=== PATIENT | male | born 1990 | race Caucasian/White ===

== ENCOUNTER 2017-06-22 09:41 | Emergency (ER) | payer OTHER ==
--- NOTE | 2017-06-22 10:07 | ERNOTE ---
Upper Extremity HPI - Narrative Date of Service: 06/22/17 - General Extremities Pain Location: forearm: right Time Seen by Provider: 06/22/17 09:50 Source: patient Exam Limitations: no limitations - Immun/Allergies/Home Medications Immunizations: IMMUNIZATION HX Immunizations Up to Date No History of Influenza Vaccine No Hx Pneumococcal Vaccination No Allergies/Adverse Reactions: Allergies Allergy/AdvReac Type Severity Reaction Status Date / Time No Known Allergies Allergy Unverified 06/22/17 09:51 Home Medications: HOME MEDICATIONS Cephalexin Monohydrate [Keflex] 500 mg PO QID #40 cap 06/22/17 [Last Taken Unknown] Ibuprofen 800 mg PO TID PRN #30 tablet 06/22/17 [Last Taken Unknown] - History of Present Illness Narrative: Pt. comes in with c/o R fore arm injury where he was swinging a hammer and his R forearm suddenly developed severe pain and spontaneous bleeding through what appears to be a puncture through the skin but pt. denies hitting his forearm on anything. Pt. denies any numbness or tingling but does state that he has no strength in his arm or hand. Pt. denies any SOB, CP, NVD, fever, recent illness , prehospital treatment, or alleviating factors. Review of Systems - Review of Systems Constitutional: Present: no symptoms reported. Absent: recent illness, fever, chills, weakness, fatigue EYE: Present: no symptoms reported ENT: Present: no symptoms reported Respiratory: Present: no symptoms reported. Absent: shortness of breath, cough , wheezing Cardiology: Present: no symptoms reported. Absent: chest pain, palpitations, edema Gastrointestinal/Abdominal: Present: no symptoms reported. Absent: nausea, vomiting, diarrhea Genitourinary: Present: no symptoms reported Musculoskeletal: Present: muscle pain - R forearm Skin: Present: no symptoms reported Neurological: Present: no symptoms reported. Absent: headache, dizziness/light- headedness, numbness, tingling All Other Systems: All systems neg except as marked - Patient's Past Medical History Patient History - Medical: No pertinent hx Patient History - Cardiac/Respiratory: No pertinent hx Patient History - Cancer: No Hx of Cancer Patient History - Surgical Procedures: No surgical history Patient History - Other: None - Family History Father Family History - Cardiac/Respiratory: Atrial Fibrillation - Social History Living Situations: home Psych History: No pertinent hx Smoking Status: Never smoker Have you smoked in the past 12 months: No Alcohol Use: rarely Drug Use: none - Immunizations Immunizations Up to Date: No Hx Pneumococcal Vaccination: No History of Influenza Vaccine: No Physical Exam - Physical Exam General Appearance: Present: wd/wn, alert, no apparent distress Head Exam: Present: normal inspection, no evidence of injury Neck: Present: normal inspection Respiratory: Present: no respiratory distress, normal breath sounds, no accessory muscle use, chest nontender, lungs clear Cardiovascular/Chest: Present: regular rate, rhythm, no murmur, normal peripheral pulses Gastrointestinal/Abdominal: Present: normal bowel sounds, nontender, nondistended, soft, no organomegaly Back Exam: Present: normal inspection Extremity Exam: Present: no edema, decreased range of motion - 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 Absent: pallor, skin rash ED Progress - Date and Time Seen: Date and Time: 06/22/17 10:[address] Ritchie and left message for him to call back for consult. 06/22/17 11:[address] Ritchie and he recommends one dose of ancef here, home with ice and elevation and follow up with him in clinic on thursday for further evaluation - Vital Signs Patient's Vital Signs:: I have reviewed the patient's vital signs. Vital Signs: Vital Signs 06/22/17 09:46 Temperature 37.3 C Pulse Rate 80 Respiratory 16 Rate Blood Pressure 140/88 O2 Sat by Pulse 100 Oximetry - X-Ray X-Ray #1 X-Ray: forearm Interpretation: Reviewed by me X-ray Comments: 0.4 x 0.2 cm foreign body along medial radius and soft tissue swelling. - Progress/Reassessment Chief Complaint: Upper Extremity Injury/Problem Departure Clinical Impression: Brachioradialis muscle tenderness Foreign body forearm Qualifiers: Encounter type: initial encounter Laterality: right Qualified Code(s): S50.851A - Superficial foreign body of right forearm, initial encounter - Departure Disposition: Home self-care Condition: Good Additional Instructions: Please rest R arm and keep elevated above heart and apply ice 20 minutes every hour until seen by Dr Ritchie on Thursday. Prescriptions: Cephalexin Monohydrate [Keflex] 500 mg PO QID #40 cap Ibuprofen 800 mg PO TID PRN #30 tablet PRN Reason: Pain
[2017-06-22] MEDS ORDERED: DIPHTH,PERTUSS(ACELL),TET VAC 0.5 ML VIAL IM ONE ×2 (10:31→10:32)
[2017-06-22] MEDS ORDERED: ceFAZolin SODIUM/DEXTROSE,ISO 2 GM/50 ML BAG IV ONE (11:20)
[2017-06-22 11:53] VITALS: BP 131/79
== END 2017-06-22 12:00 | disposition home or self-care (01) ==
LOC: ER 09:41
DX: M79.1 Myalgia (principal); S50.851A Superficial foreign body of right forearm, initial encounter; X58.XXXA Exposure to other specified factors, initial encounter; Y93.H3 Activity, building and construction; Y92.69 Other specified industrial and construction area as the place of occurrence of the external cause; Y99.0 Civilian activity done for income or pay; Z23 Encounter for immunization